=== PATIENT | male | born 1975 | race African-American/Black ===

== ENCOUNTER 2017-09-16 10:35 | Emergency (ER) | payer OTHER ==
[~2017-09-16] VITALS: Ht 434.3 cm; Wt 113.7 kg
[~2017-09-16 10:35] MED LIST: BACTRIM,SEPT1 TABLET PO; CAPT25T PO; Cipro PO; Glucophage PO; HYDROCHLOROTH12.5 M3 PO; KEFLEX500 MG PO; METFORMIN HCL1000 MG PO; METFORMIN HCL500 MG PO; NAPROSYN500 MG PO; NOHOMEMEDS; NORCO 7.5/321 TABLET PO; PERCOCET 5/31 TABLET PO; TYLENOL WITH C1 EACH PO; Tylenol Regular Stre PO; ZITHROMAX Z-PA250 MG PO; [UNRECOGNIZED DRUG - REMARK] PO
[2017-09-16 11:15] LABS: HEMATOCRIT 44.5 % (38.0-50.0); HEMOGLOBIN 15.5 G/DL (12.5-16.6); MCH 30.9 PG (29.0-34.0); MCHC 34.8 G/DL (30.0-36.0); MCV 88.6 FL (86-99); PLATELET COUNT 232 K/uL (156-360); RBC DIS.WIDTH-CV 13.2 % (11.8-14.6); RBC DIS.WIDTH-SD 43.4 % (39-53); RED BLOOD COUNT 5.02 M/uL (4.00-5.50); WHITE BLOOD COUNT 4.8 K/uL (4.1-10.2)
[2017-09-16 11:24] LABS: CHLORIDE 103 mEq/L (99-109); POTASSIUM 3.7 mEq/L (3.7-5.4); SODIUM 139 mEq/L (136-147)
[2017-09-16 11:26] LABS: GLUCOSE 218 mg/dL (70-99)
[2017-09-16 11:30] LABS: CREATININE 1.2 mg/dL (0.6-1.3); GFR ESTIMATE (CALCULATED) > 59 mL/min/ (58.99-99999); UREA NITROGEN (BUN) 12 mg/dL (9-23)
[2017-09-16 11:38] LABS: TROP-I INTERPRETATION NEGATIVE; TROPONIN-I < 0.01 ng/mL (0.0-0.30)
[2017-09-16 13:36] LABS: D-DIMER ELISA < 150.00 ng/mLDDU (<230)
[2017-09-16] MEDS ORDERED: ZITHROMAX Z-PA250 MG PO (14:18)
[2017-09-16] MEDS ORDERED: ULTRAM50 MG PO (14:18)
[2017-09-16] MEDS ORDERED: PROAIR HFA8.5 GM IH (14:18)
[2017-09-16 14:41] VITALS: BP 165/102
== END 2017-09-16 14:42 | disposition home or self-care (01) ==
LOC: EME 10:35
DX: J40 Bronchitis, not specified as acute or chronic (principal); R94.31 Abnormal electrocardiogram [ECG] [EKG]; E11.9 Type 2 diabetes mellitus without complications; Z79.84 Long term (current) use of oral hypoglycemic drugs; Z91.013 Allergy to seafood; Z91.018 Allergy to other foods
CPT/HCPCS: 71046; 80048; 84484; 85027; 85379; 93005; 94640; 99281; 99285